=== PATIENT | male | born 1945 | race Caucasian/White ===

== ENCOUNTER → 2017-06-09 | Outpatient (CLI) | payer BC, OTHER ==
--- NOTE | ~2017-06-09 | EKG ---
[address] [address] ELECTROCARDIOGRAM REPORT Name: MALA FELDER [facility]God[id number] Admission: 06/09/17 Attend Phys: Veronica Ritter MD Discharge: Date of : 49 Report #: [id number] THIS REPORT FOR: //name// [facility] Test Date: 2017-06-09 Test Time: 15:20:59 Pat Name: MALA FELDER Department: Room: Gender: Grid Operator: Nhi MORROW : 1945 Requested By: Veronica Ritter Order Number: [id number] MD: Paul Oreilly Measurements Intervals [place] Rate: 79 P: 85 TX: 186 QRS: 85 QRSD: 99 T: 67 QT: 377 QTc: 433 Interpretive Statements Sinus rhythm No significant abnormality Compared to ECG 09/04/2008 14:54:35 No significant change was found Electronically Signed On 06-10-2017 8:24:11 CDT by Paul Oreilly [email or web address] <ELECTRONICALLY SIGNED> By: Paul Oreilly MD, [facility] 06/10/17 0824 1520 1520 Paul Oreilly MD, FACC /EPI
== END ==
LOC: OR 14:56
DX: Z01.810 Encounter for preprocedural cardiovascular examination (principal)